=== PATIENT | male | born 1965 | race Caucasian/White ===

== ENCOUNTER 2016-05-27 10:39 | Day surgery (SDC) | payer BC ==
[2016-05-24 14:50] VITALS: BMI 31.0
[2016-05-27] VITALS (10 sets, daily range): BP systolic 131–168; BP diastolic 76–106; PULSE 68–85; RESP 12–18; Ht 162.6 cm; Wt 80.9 kg
[~2016-05-27] VITALS: Ht 162.6 cm; Wt 80.9 kg
[~2016-05-27 10:39] MED LIST: GLYCOPYRROLATE 0.4 MG INJ ONE; NEOSTIGMINE 3 MG/3 ML SYRINGE ONE
--- NOTE | 2016-05-27 12:18 | RADRPT ---
PROCEDURE: XR Chest. CLINICAL INDICATION: preop. hernia TECHNIQUE: Single frontal view of the chest was obtained COMPARISON: None FINDINGS: The heart and mediastinum are within normal limits. The lungs are clear. There is no pleural effusion or pneumothorax. RPTAT: AA IMPRESSION: No acute disease. .Boy Castellanos MD, MD Date Time Electronically viewed and signed by .Boy Castellanos MD, on 05/27/2016 12:17 .S/
[2016-05-27 13:09] LABS: BASOPHILS % 0.6 % (0.0-2.0); CONDITION 1; EOSINOPHILS # 0.1 10^3/ul (0.0-0.5); EOSINOPHILS % 1.5 % (0.0-7.0); HEMATOCRIT 43.4 % (42.0-52.0); HEMOGLOBIN 14.8 g/dl (14.0-18.0); LYMPHOCYTES # 2.2 10^3/ul (0.8-2.9); LYMPHOCYTES % 28.8 % (15.0-51.0); MEAN CORPUSCULAR HEMOGLOBIN 31.7 pg (29.0-33.0); MEAN CORPUSCULAR HGB CONC 34.1 g/dl (32.0-37.0); MEAN PLATELET VOLUME 8.9 fl (7.4-10.4); MONOCYTE # 0.7 10^3/ul (0.3-0.9); MONOCYTES % 8.6 % (0.0-11.0); NEUTROPHIL # 4.7 10^3/ul (1.6-7.5); NEUTROPHILS % 60.5 % (39.0-77.0); PLATELET COUNT 219 10^3/UL (140-440); RED BLOOD COUNT 4.66 10^6/ul (4.70-6.10); RED CELL DISTRIBUTION WIDTH 13.2 % (11.5-14.5); UNCORRECTED WBC 7.8 10^3/ul (4.8-10.8); WHITE BLOOD COUNT 7.8 10^3/ul (4.8-10.8)
[2016-05-27 13:17] LABS: INR 0.93; PROTIME 12.5 Sec (12.2-14.2)
[2016-05-27 13:18] LABS: PARTIAL THROMBOPLASTIN TIME 29.4 Sec (25.0-35.0)
[2016-05-27 13:26] LABS: CALCIUM 9.2 mg/dl (8.4-10.2); CREATININE 0.89 mg/dl (0.61-1.24); POTASSIUM 4.4 mmol/L (3.5-5.1)
[2016-05-27] MEDS ORDERED: POLYMYXIN/BACITRACIN 1L IRRIG ONE (14:36)
[2016-05-27] MEDS ORDERED: BUPIVACAINE 0.25% (MPF) 30 ML INJ ONE (14:43)
[2016-05-27] MEDS ORDERED: FENTAnyl 50 MCG/ML VIAL ONE ×2 (14:57→15:27)
[2016-05-27] MEDS ORDERED: SUCCINYLCHOLINE CHLORIDE 100 MG/5 ML SYG IV ONE ×2 (15:00→15:19)
[2016-05-27] MEDS ORDERED: LIDOCAINE 2% (SDV) 5 ML INJ ONE (15:19)
[2016-05-27] MEDS ORDERED: ROCURONIUM 50 MG INJ ONE (15:19)
[2016-05-27] MEDS ORDERED: CEFAZOLIN 1 GM INJ ONE (15:19)
[2016-05-27] MEDS ORDERED: PROPOFOL 40 ML ONE (15:19)
[2016-05-27] MEDS ORDERED: ROPIVACAINE 0.5 % 30 ML VIAL ONE (15:46)
[2016-05-27] MEDS ORDERED: HYDROCODONE/APAP (5/325) TAB PO ONE (16:00)
[2016-05-27] MEDS: HYDROmorphONE (0.2 MG/ML) 10ML SYG IV PRN ×4 (16:14→16:44)
[2016-05-27] MEDS ORDERED: FENTAnyl 50 MCG/ML VIAL IV PRN ×2 (16:30)
[2016-05-27] MEDS ORDERED: HYDROmorphONE (0.2 MG/ML) 10ML SYG IV PRN (16:30)
[2016-05-27] MEDS ORDERED: DIPHENHYDRAMINE 50 MG INJ IV PRN (16:30)
[2016-05-27] MEDS ORDERED: MEPERIDINE 25 MG INJ IV PRN (16:30)
--- NOTE | 2016-05-27 17:28 | OPR ---
DATE OF OPERATION: 05/27/2016 INDICATION: This is a 50-year-old male with a left inguinal hernia. He requests surgical repair. Risks, alternatives, benefits, and personnel were discussed with the patient. Patient expresses und erstanding and consents to the operation. PREOPERATIVE DIAGNOSIS: Left inguinal hernia. POSTOPERATIVE DIAGNOSIS: Left inguinal hernia. OPERATION: Open left inguinal hernia repair with medium size Ultrapro hernia system mesh. SURGEON: Matthew Guidry MD SPECIMENS: None. COMPLICATIONS: None. ANESTHESIA: General. DESCRIPTION OF PROCEDURE: The patient was taken to the OR and prepped and draped in the usual steri le fashion. Surgical timeout was performed. IV antibiotics were given. Left inguinal oblique inci kat was made with a 10 blade. Dissection cautery was carried down to the external oblique fascia. This was opened with a 15 blade. This incision is extended medial inferiorly and lateral superiorl y with Metzenbaum scissors. Cord structure identified and encircled with a Karol drain. Indirect hernia was identified and reduced. The disk portion of the UltraPro hernia system mesh was placed into the indirect space and secured in place with a running 0 Prolene from the pubic tubercle along the shelving edge of the inguinal ligament and superiorly to the internal oblique with interrupted 3 -0 Vicryl. Onlay mesh was secured in a similar fashion with a running 0 Prolene from the pubic tube rcle along the shelving edge of the inguinal ligament. Straps were created and reapproximated with interrupted 0 plain to recreate the inguinal ring. Onlay mesh was secured to the internal oblique w ith interrupted 3-0 Vicryl. External oblique fascia was closed with a running 3-0 Vicryl. Agnieszka's was closed with interrupted 3-0 Vicryl. Skin was closed using skin christian. Local anesthesia was injected. Dry dressing was applied. Dictated By: MATTHEW GUIDRY MD SB/PUNEET Conf#: [id number] DID#: [id number]
--- NOTE | 2016-05-29 15:49 | RADRPT ---
Vent Rate: 67 bpm RR Interval: 0 msec RI Interval: 138 msec QRS Duration: 102 msec QT Interval: 410 msec QTC Interval: 433 msec P-R-T [place]: 64 - 80 - 64 degrees Normal sinus rhythm Incomplete right bundle branch block Borderline ECG Electronically Signed By: Nikolay Perez [id number]
== END 2016-05-27 18:05 | disposition home or self-care (01) ==
LOC: SDS 10:39
PROVIDERS: ATTEND Surgery
DX: K40.90 Unilateral inguinal hernia, without obstruction or gangrene, not specified as recurrent (principal); E66.9 Obesity, unspecified; Z68.30 Body mass index [BMI] 30.0-30.9, adult
CPT/HCPCS: 49505; 71010; 80048; 85025; 85610; 85730; 93005; C1781; J0330; J0690; J1170; J2175; J2710; J2795; J3010; Z7512; Z7610

== ENCOUNTER 2018-07-21 12:37 | Day surgery (SDC) | payer BC ==
[~2018-07-21] VITALS: Ht 162.6 cm; Wt 86.5 kg
[2018-07-21 14:07] VITALS: Ht 162.6 cm; Wt 86.5 kg
[2018-07-21] MEDS ORDERED: NO HOME MEDICATIONS (14:16)
--- NOTE | 2018-07-21 14:24 | PREAC ---
Date/Time of Note Date/Time of Note DATE: 07/21/18 TIME: 14:23 Anesthesia Eval and Record Evaluation Time Pre-Procedure Interview DATE: 07/21/18 TIME: 14:23 Age 53 Sex male NPO: 8 hrs Preoperative diagnosis SCREENING Planned procedure COLONOSCOPY Past Medical History Past Medical History: Includes GI: Obesity Surgery & Anesthesia Issues No known issue Meds Anticoagulation: No Beta Veena within 24 hr: No Reason Beta Veena not given: Pt. not on B-Veena Reported Medications [No Home Medications] No Conflict Check 07/21/18 Meds reviewed: Yes Allergies Coded Allergies: No Known Allergy (Unverified , 05/27/16) Allergies Reviewed: Yes Labs/Studies Labs Reviewed: Reviewed by anesthesiologist test: N/A Pre-procedure Exam Airway: Adequate mouth opening, Adequate thyromental dist Mallampati: Mallampati II Teeth: Normal Lung: Normal Heart: Normal ASA Physical Status ASA physical status: 1 Emergency: None Planned Anesthetic General/MAC: MAC Planned Pain Management Parenteral pain med Pre-operative Attestations Prior to commencing anesthesia and surgery, the patient was re-evaluated, there was verification of: *The patient's identity *The results of appropriate recent lab work and preoperative vital signs *The above evaluation not changing prior to induction *Anesthetic plan, risk benefits, alternative and complications discussed with patient/family; questions answered; patient/family understands, accepts and wishes to proceed. BRI KAN Jul 21, 2018 14:24
[2018-07-21] MEDS ORDERED: PROPOFOL 60 ML ONE (14:26)
[2018-07-21] MEDS ORDERED: LIDOCAINE 2% (SDV) 5 ML INJ ONE (14:26)
[2018-07-21] MEDS ORDERED: EPHEDrine SULFATE 50 MG/5 ML SYG IV PRN (14:30)
[2018-07-21] MEDS ORDERED: FENTAnyl 50 MCG/ML VIAL IV PRN (14:30)
[2018-07-21] MEDS ORDERED: ALBUTEROL 0.083% (NEB) 2.5 MG/3 ML AMP HHN PRN (14:30)
[2018-07-21] MEDS ORDERED: PROPOFOL 200 MG INJ ONE (14:30)
[2018-07-21] MEDS ORDERED: LABETALOL HCL 20MG INJ IV PRN (14:30)
[2018-07-21] MEDS ORDERED: ONDANSETRON 4 MG INJ IV PRN (14:30)
[2018-07-21] MEDS ORDERED: hydrALAzine 20 MG INJ IV PRN (14:30)
[2018-07-21 14:33] VITALS: BP 120/62; PULSE 79; RESP 14
--- NOTE | 2018-07-21 15:06 | PAC ---
Date/Time of Note Date/Time of Note DATE: 07/21/18 TIME: 15:05 Post-Anesthesia Notes Post-Anesthesia Note Last documented vital signs TEMP 97.8 BP 110/76 o2 SAT 98% Activity: WNL Respiratory function: WNL Cardiovascular function: WNL Mental status: Baseline Pain reasonably controlled: Yes Hydration appropriate: Yes Nausea/Vomiting absent: Yes BRI KAN Jul 21, 2018 15:06
[2018-07-21 15:23] VITALS: BP 127/70; PULSE 71; RESP 16
== END 2018-07-21 15:37 | disposition home or self-care (01) ==
LOC: GIL 12:37
PROVIDERS: ATTEND Internal Medicine Gastroenterology
DX: Z12.11 Encounter for screening for malignant neoplasm of colon (principal); D12.5 Benign neoplasm of sigmoid colon; K64.8 Other hemorrhoids; D12.3 Benign neoplasm of transverse colon
CPT/HCPCS: 45380; 45385; 88305; Z7610